=== PATIENT | male | born 2005 | race Caucasian/White ===

== ENCOUNTER 2024-12-13 09:46 | Emergency (ER) | payer SELFPAY ==
[~2024-12-13] VITALS: Ht 172.7 cm; Wt 66.3 kg
[~2024-12-13 09:46] MED LIST: CLARITIN-D 241 EACH PO; FLONASE ALLERG9.9 ML INH; MUCINEX DM ER1 EAC1 PO; ONDANSETRON ODT4 MG PO
[2024-12-13 10:23] VITALS: PULSE 84; RESP 16; TEMP 99.3; O2SAT 98
[2024-12-13] MEDS ORDERED: DIPHENHYDRAMINE25 M2 PO (10:51)
[2024-12-13] MEDS ORDERED: CLARITIN-D 241 EACH PO (10:51)
[2024-12-13] MEDS ORDERED: TYLENOL325 MG PO (10:51)
== END 2024-12-13 10:58 | disposition home or self-care (01) ==
LOC: FSED 09:57
DX: J02.9 Acute pharyngitis, unspecified (principal); R09.81 Nasal congestion; R53.81 Other malaise
CPT/HCPCS: 0223U; 87400; 99284